=== PATIENT | male | born 1980 | race African-American/Black ===

== ENCOUNTER 2023-06-26 17:22 | Emergency (ER) | payer BC ==
[~2023-06-26] VITALS: Ht 188 cm; Wt 94.0 kg
[2023-06-26 17:29] VITALS: BP 122/68; O2SAT 98
[2023-06-26] MEDS ORDERED: BACITRACIN ZINC OINT UDPKT TOP ONE (19:30)
[2023-06-26] MEDS ORDERED: LIDOCAINE HCL/PF 1% 10 MG/ML 5ML VIAL INFIL ONE (19:30)
[2023-06-26 23:47] VITALS: PULSE 73; RESP 20; TEMP 98.4
== END 2023-06-26 23:49 | disposition home or self-care (01) ==
LOC: ER 19:10
DX: S01.111A Laceration without foreign body of right eyelid and periocular area, initial encounter (principal); X58.XXXA Exposure to other specified factors, initial encounter; Y93.67 Activity, basketball; Y92.89 Other specified places as the place of occurrence of the external cause; Y99.8 Other external cause status
CPT/HCPCS: 12011; 99282; Z7610 ×3

== ENCOUNTER 2024-03-07 22:34 | Emergency (ER) | payer BC, MEDICAID ==
[~2024-03-07] VITALS: Ht 188 cm; Wt 91.0 kg
[2024-03-07 22:36] VITALS: BP 109/60; PULSE 78; RESP 18; TEMP 97.5; O2SAT 100
== END 2024-03-07 22:53 | disposition home or self-care (01) ==
LOC: ER 22:34
DX: A05.9 Bacterial foodborne intoxication, unspecified (principal)
CPT/HCPCS: 99283